=== PATIENT | female | born 1970 | race Caucasian/White ===

== ENCOUNTER 2022-05-17 02:51 | Emergency (ER) | payer OTHER ==
[~2022-05-17 02:51] MED LIST: CHLORTHALIDONE25 MG PO; ESTROVEN MAX400 MCG PO; PRINIVIL20 MG PO; SAXENDA PO
[2022-05-17 04:14] LABS: BASOPHIL 0.6 % (0-2); EOSINOPHIL 0.9 % (0-5); HCT 37.2 % (37.0-47.0); HGB 12.1 g/dl (12.5-16.0); LYMPHOCYTE 16.6 % (15-48); MCH 28.3 pg (25.0-31.0); MCHC 32.5 g/dL (32.0-36.0); MCV 86.9 fL (78.0-100.0); MONOCYTE 6.7 % (0-12); MPV 9.3 fL (6.0-9.5); NEUTROPHIL 74.6 % (41-80); NRBC 0; PLT 357 K/uL (150-400); RBC 4.28 M/uL (4.20-5.40); RDW 13.5 % (11.5-14.0); WBC 10.1 K/uL (4.0-10.5)
[2022-05-17 04:28] LABS: INR 0.91 (0.9-1.2); PTT 32.4 SECONDS (24.9-34.6)
[2022-05-17 04:49] LABS: ALBUMIN 3.2 g/dL (3.4-5.0); ALKALINE PHOSHATASE 111 U/L (46-116); ALT 18 U/L (14-59); AST 13 U/L (15-37); BILIRUBIN - TOTAL 0.3 mg/dL (0.2-1.0); BUN 23 mg/dL (7-18); CHLORIDE 104 mmol/L (98-107); CO2 (BICARBONATE) 30 mmol/L (21-32); CREATININE 0.96 mg/dL (0.51-0.95); GLUCOSE 129 mg/dL (74-106); LIPASE 101 U/L (73-393); POTASSIUM 3.1 mmol/L (3.5-5.1); TOTAL PROTEIN 7.2 g/dL (6.4-8.2)
[2022-05-17 05:27] LABS: CORONAVIRUS 2019 SARS-COV-2 NEGATIVE (NEGATIVE); INFLUENZA A NAA NEGATIVE (NEGATIVE)
== END 2022-05-17 06:08 | disposition home or self-care (01) ==
LOC: FER 02:51
PROVIDERS: Internal Medicine
DX: K80.20 Calculus of gallbladder without cholecystitis without obstruction (principal); K21.9 Gastro-esophageal reflux disease without esophagitis; I10 Essential (primary) hypertension; Z28.310 Unvaccinated for COVID-19; Z20.822 Contact with and (suspected) exposure to COVID-19; Z91.040 Latex allergy status; Z79.899 Other long term (current) drug therapy
CPT/HCPCS: 36415; 71250; 80053; 83605; 83690; 84145; 84484; 85025; 85610; 85730; C9113; G0480; J1170; J2405; J7120; U0002

== ENCOUNTER → 2022-06-02 | Day surgery (SDC) | payer OTHER ==
[~2022-06-02] VITALS: Ht 167.6 cm; Wt 148.8 kg
[~2022-06-02] MED LIST changes: +CELECOXIB100 MG PO; +OMEPRAZOLE40 MG PO; +SUCRALFATE1 GM PO; +VENLAFAXINE H37.5 M1 PO; +VITAMIN D21250 MCG PO
== END | disposition home or self-care (01) ==
LOC: FAS 05:54
DX: K29.50 Unspecified chronic gastritis without bleeding (principal); K21.00 Gastro-esophageal reflux disease with esophagitis, without bleeding; I10 Essential (primary) hypertension; D64.9 Anemia, unspecified; G47.30 Sleep apnea, unspecified; F41.9 Anxiety disorder, unspecified; Z91.040 Latex allergy status; Z79.899 Other long term (current) drug therapy
CPT/HCPCS: J2250; J2704; J7120